=== PATIENT | male | born 1995 | race American Indian/Alaskan Native ===

== ENCOUNTER 2016-06-26 04:17 | Emergency (ER) | payer OTHER ==
[2016-06-26 04:42] VITALS: BP 129/80; PULSE 84; RESP 17; TEMP 98.8; O2SAT 98
--- NOTE | 2016-06-26 05:16 | ED PDOC ---
Lower Extremity Pain/Injury Time Seen by Provider: 06/26/16 04:43 Chief Complaint (Nursing): Lower Extremity Problem/Injury Additional Complaint(s): Pt c/o left numbness after fall, pt denies pain. Past Medical History Vital Signs: Last Vital Signs Temp 98.8 F 06/26/16 04:38 Pulse 84 06/26/16 04:38 Resp 17 06/26/16 04:38 BP 129/80 06/26/16 04:38 Pulse Ox 98 06/26/16 04:38 - Medical History PMH: Asthma - Family History Family History: States: Unknown Family Hx - Immunization History Hx Tetanus Toxoid Vaccination: No Hx Influenza Vaccination: No Hx Pneumococcal Vaccination: No - Home Medications Home Medications: Ambulatory Orders Medication Instructions Recorded Naproxen 500 mg PO Q12 #20 tab 02/08/14 Ibuprofen 600 mg PO Q6H PRN #15 tab 08/31/14 traMADol [Ultram] 50 mg PO Q6 PRN #15 tab 08/31/14 Naproxen [Naprosyn] 500 mg PO BID PRN #30 tab 05/30/15 Oseltamivir [Tamiflu] 75 mg PO BID #10 cap 04/19/16 - Allergies Allergies/Adverse Reactions: Allergies Allergy/AdvReac Type Severity Reaction Status Date / Time FISH Allergy SWELLING Verified 04/18/16 23:38 shellfish derived Allergy SWELLING Verified 04/18/16 23:38 SEAFOOD Allergy ANAPHYLAXIS Uncoded 05/30/15 22:24 - ECG O2 Sat by Pulse Oximetry: 98 Disposition - Clinical Impression Clinical Impression: Leg pain - Disposition Condition: GOOD Instructions: Leg Pain (ED)
== END 2016-06-26 05:27 | disposition home or self-care (01) ==
LOC: H.ER 04:17
DX: M79.606 Pain in leg, unspecified (principal)

== ENCOUNTER 2016-11-26 17:58 | Emergency (ER) | payer OTHER ==
[2016-11-26 18:03] VITALS: BP 148/74; PULSE 67; RESP 16; TEMP 98.3; O2SAT 98
--- NOTE | 2016-11-26 18:10 | ED PDOC ---
HPI: General Adult Time Seen by Provider: 11/26/16 18:05 Chief Complaint (Nursing): Upper Extremity Problem/Injury Chief Complaint (Provider): right hand pain History Per: Patient History/Exam Limitations: no limitations Onset/Duration Of Symptoms: Days (x2days) Additional Complaint(s): Jenn Sofia is a 21 year old left hand dominant male with a medical history of asthma who presents to the ED for a chief complaint of a right hand injury. Patient reports that he punched a mailbox on Sunday and has had pain and swelling since then. No associated numbness or tingling to affected area. He rates current pain as 5/10. PMD: None. Past Medical History Reviewed: Historical Data, Nursing Documentation, Vital Signs Vital Signs: Last Vital Signs Temp 98.3 F 11/26/16 18:00 Pulse 67 11/26/16 18:00 Resp 16 11/26/16 18:00 BP 148/74 11/26/16 18:00 Pulse Ox 98 11/26/16 18:17 - Medical History PMH: Asthma - Surgical History Other surgeries: removal of intra-oral cyst - Family History Family History: States: No Known Family Hx - Living Arrangements Living Arrangements: With Family - Social History Current smoker - smoking cessation education provided: Yes Ex-Smoker (has not smoked in the last 12 months): No Alcohol: Occasional Drugs: Denies - Home Medications Home Medications: Ambulatory Orders Medication Instructions Recorded Naproxen 500 mg PO Q12 #20 tab 02/08/14 Ibuprofen 600 mg PO Q6H PRN #15 tab 08/31/14 traMADol [Ultram] 50 mg PO Q6 PRN #15 tab 08/31/14 Naproxen [Naprosyn] 500 mg PO BID PRN #30 tab 05/30/15 Oseltamivir [Tamiflu] 75 mg PO BID #10 cap 04/19/16 - Allergies Allergies/Adverse Reactions: Allergies Allergy/AdvReac Type Severity Reaction Status Date / Time FISH Allergy SWELLING Verified 04/18/16 23:38 shellfish derived Allergy SWELLING Verified 04/18/16 23:38 SEAFOOD Allergy ANAPHYLAXIS Uncoded 05/30/15 22:24 Review of Systems ROS Statement: Except As Marked, All Systems Reviewed And Found Negative Musculoskeletal: Positive for: Other (right hand injury) Physical Exam - Reviewed Nursing Documentation Reviewed: Yes Vital Signs Reviewed: Yes - Physical Exam Appears: Positive for: Well, Non-toxic, No Acute Distress Head Exam: Positive for: ATRAUMATIC, NORMAL INSPECTION, NORMOCEPHALIC Skin: Positive for: Normal Color. Negative for: Rash Eye Exam: Positive for: Normal appearance Extremity: Positive for: Other (Mild tenderness to the right 5th digit metacarpal with full range of motion of the right wrist and full range of motion of all digits of right hand) Neurologic/Psych: Positive for: Alert, Oriented - ECG O2 Sat by Pulse Oximetry: 98 (RA) Pulse Ox Interpretation: Normal - Other Rad Right hand x-ray X-Ray: Interpreted by Me, Viewed By Me X-Ray Interpretation: no fx, no dis Medical Decision Making Medical Decision Makin: Initial Impression: Right hand Injury Initial Plan: * X-ray hand * Re-Evaluation X-ray is negative for fracture or dislocation. Patient was instructed to take over the counter advil for pain as needed. 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 Scribe Attestation: Documented by Tutu Chaudhari acting as a scribe for Radha Kumar PA-C. Provider Scribe Attestation: All medical record entries made by the Scribe were at my direction and personally dictated by me. I have reviewed the chart and agree that the record accurately reflects my personal performance of the history, physical exam, medical decision making, and the department course for this patient. I have also personally directed, reviewed, and agree with the discharge instructions and disposition. Disposition - Clinical Impression Clinical Impression: Hand contusion - Patient ED Disposition Is Patient to be Admitted: No Counseled Patient/Family Regarding: Studies Performed, Diagnosis, Need For Followup - Disposition Referrals: Dmitry Sanabria MD [Staff Provider] - Disposition: Routine/Home Disposition Time: 18:28 Condition: STABLE Additional Instructions: Ice, rest and elevate affected area. Take over the counter advil for pain as needed. Follow up with orthopedist for any persistent symptoms. Instructions: Contusion in Adults (ED), Hand Sprain (ED) Forms: [employer] (Lithuanian)
--- NOTE | 2016-11-27 08:53 | RAD ---
PROCEDURE: Right Hand Radiographs. HISTORY: trauma COMPARISON: Comparison right hand radiographs included left hand radiograph 07/19/2010. FINDINGS: BONES: Normal. No fracture. No significant interval change is identified at this time. JOINTS: Normal. No osteoarthritic changes. SOFT TISSUES: Normal. OTHER FINDINGS: None. IMPRESSION: Normal right hand radiographs. No significant interval change compared to prior comparison right hand radiographs 07/19/2010.
== END 2016-11-26 19:17 | disposition home or self-care (01) ==
LOC: H.ER 17:58
DX: S60.221A Contusion of right hand, initial encounter (principal); W22.8XXA Striking against or struck by other objects, initial encounter; Y92.89 Other specified places as the place of occurrence of the external cause

== ENCOUNTER 2018-07-15 22:46 | Emergency (ER) | payer SELFPAY ==
[2018-07-15 22:46] VITALS: BMI 22.7
[2018-07-15 23:16] VITALS: BP 138/84; PULSE 88; RESP 16; TEMP 98; O2SAT 98
[2018-07-15] MEDS ORDERED: Lidocaine 5% Patch TD STA (23:24)
--- NOTE | 2018-07-15 23:24 | ED PDOC ---
Lower Extremity Pain/Injury Time Seen by Provider: 07/15/18 23:16 Chief Complaint (Nursing): Lower Extremity Problem/Injury Chief Complaint (Provider): Right Thigh Pain History Per: Patient History/Exam Limitations: no limitations Onset/Duration Of Symptoms: Hrs (since yesterday 730AM) Current Symptoms Are (Timing): Still Present Additional Complaint(s): Patient is a 23 year old male who presents to the ED for evaluation of right thigh pain. Patient reports yesterday morning he was playing football when he was struck in the mid right thigh by someone else's knee. Patient reports he was unable to continue playing football and had "the knot" rolled out by an acquaintance. Patient reports pain has been persistent, described as a cramping sensation. Patient reports taking Tramadol 50mg PO this morning at 8am. Patient able to ambulate with a limp. Denies any prior femur injury or surgery. No other complaints at present. PMD: none Past Medical History Reviewed: Historical Data, Nursing Documentation, Vital Signs Vital Signs: Last Vital Signs Temp 98.0 F 07/15/18 23:10 Pulse 88 07/15/18 23:10 Resp 16 07/15/18 23:10 BP 138/84 07/15/18 23:10 Pulse Ox 98 07/15/18 23:10 - Medical History PMH: Asthma - Surgical History Surgical History: No Surg Hx - Family History Family History: States: Unknown Family Hx - Home Medications Home Medications: Ambulatory Orders Medication Instructions Recorded Naproxen 500 mg PO Q12 #20 tab 02/08/14 Ibuprofen 600 mg PO Q6H PRN #15 tab 08/31/14 traMADol [Ultram] 50 mg PO Q6 PRN #15 tab 08/31/14 Naproxen [Naprosyn] 500 mg PO BID PRN #30 tab 05/30/15 Oseltamivir Cap [Tamiflu] 75 mg PO BID #10 cap 04/19/16 Ibuprofen [Motrin] 400 mg PO Q8H PRN #20 tab 12/08/16 Acetaminophen [Acetaminophen 8 650 mg PO Q8 PRN #21 tablet.er 07/15/18 Hour] Ibuprofen [Motrin Tab] 800 mg PO Q8 PRN #21 tab 07/15/18 Lidocaine 5% [Lidoderm] 1 ea TD Q12 PRN #10 patch 07/16/18 - Allergies Allergies/Adverse Reactions: Allergies Allergy/AdvReac Type Severity Reaction Status Date / Time FISH Allergy SWELLING Verified 07/15/18 23:10 shellfish derived Allergy SWELLING Verified 07/15/18 23:10 SEAFOOD Allergy ANAPHYLAXIS Uncoded 07/15/18 23:10 Review of Systems ROS Statement: Except As Marked, All Systems Reviewed And Found Negative Constitutional: Negative for: Fever Cardiovascular: Negative for: Chest Pain Respiratory: Negative for: Cough, Shortness of Breath Musculoskeletal: Positive for: Other (right thigh pain) Physical Exam - Reviewed Nursing Documentation Reviewed: Yes Vital Signs Reviewed: Yes - Physical Exam Comments: GENERALIZED APPEARANCE: Patient is awake, alert, oriented x3 in no acute distress. Resting comfortably. Gait: limping in ED. SKIN: Warm, dry; (-) cyanosis. LOWER EXTREMITY:(+) tenderness to mid, lateral right thigh with mild edema (-) ecchymosis (-) erythema (-) skin break (-) warmth. Sensation intact throughout lower extremity. Hip, knee, ankle, and calf nontender with FROM. (-) pedal edema. Achilles tendon intact and nontender. CARDIOVASCULAR: (+) distal pulse. CHEST AND RESPIRATORY: (-) rales, (-) rhonchi, (-) wheezes; breath sounds equal bilaterally. Respirations even and nonlabored. HEART AND CARDIOVASCULAR: (-) irregularity NECK: Supple, FROM ENT: Mucus membranes moist. Airway patent, (-) stridor. - ECG O2 Sat by Pulse Oximetry: 98 (RA) Pulse Ox Interpretation: Normal Medical Decision Making Medical Decision Makin Initial Impression: thigh contusion, musculoskeletal leg pain Plan: -Toradol 30mg IM -Lidoderm patch -Xavi bandage applied by ED RN to thigh. NV intact after placement. -Re-evaluation 8115 On re-evaluation, patient reports improvement of symptoms. On exam, patient remains AAOx3, in no acute distress. Vitals stable. RICE encouraged. Lab/Diagnostic results d/w the patient in great detail. Diagnosis of thigh contusion, musculoskeletal leg pain d/w the patient. Based on history, exam and diagnostic results, plan will be for outpatient follow up with PMD/clinic/ortho. Patient instructed to follow-up with pmd / referral provided / the clinic in 1- 2 days without fail. Advised to take medication as prescribed. Return to the emergency room at any time for any new or worsening symptoms. Patient states he fully agrees with and understands discharge instructions. States that he agrees with the plan and disposition. Verbalized and repeated discharge instructions and plan. I have given the patient opportunity to ask any additional questions. Disposition - Clinical Impression Clinical Impression: Contusion, thigh, Leg pain - Patient ED Disposition Is Patient to be Admitted: No Counseled Patient/Family Regarding: Studies Performed, Diagnosis, Need For Followup, Rx Given - Disposition Referrals: [facility] [Outside] [facility] [Outside] Jana Briscoe MD [Staff Provider] - Disposition: Routine/Home Disposition Time: 23:55 Condition: STABLE Additional Instructions: The emergency medical care you received today was directed at your acute symptoms. If you were prescribed any medication, please fill it and take as directed. It may take several days for your symptoms to resolve. Return to the Emergency Department if your symptoms worsen, do not improve, or if you have any other problems. Please contact your doctor in 2 days for re-evaluation and follow up / or call one of the physicians/clinics you have been referred to that are listed on the Patient Visit Information form that is included in your discharge packet. Bring any paperwork you were given at discharge with you along with any medications you are taking to your follow up visit. Our treatment cannot replace ongoing medical care by a primary care provider (PCP) outside of the emergency department. Prescriptions: Acetaminophen [Acetaminophen 8 Hour] 650 mg PO Q8 PRN #21 tablet.er PRN Reason: Pain, Moderate (4-7) Ibuprofen [Motrin Tab] 800 mg PO Q8 PRN #21 tab PRN Reason: Pain, Moderate (4-7) Lidocaine 5% [Lidoderm] 1 ea TD Q12 PRN #10 patch PRN Reason: Pain, Moderate (4-7) Instructions: Taking Care of Bruises, Muscle and Bone Pain (DC), Contusion (DC) Forms: [email or web address] (Ugandan) Print Language: [email or web address] - POA Present On Arrival: None
[2018-07-15] MEDS ORDERED: Lidocaine 5% Patch TD ONE (23:36)
== END 2018-07-16 00:33 | disposition home or self-care (01) ==
LOC: H.ER 22:46
DX: S70.11XA Contusion of right thigh, initial encounter (principal); W22.8XXA Striking against or struck by other objects, initial encounter; Y92.321 Football field as the place of occurrence of the external cause
CPT/HCPCS: 96372; 99283; J1885